=== PATIENT | male | born 1955 | race Caucasian/White ===

== ENCOUNTER 2019-04-28 19:33 | Emergency (ER) | payer MEDICAID ==
[~2019-04-28] VITALS: Ht 170.2 cm; Wt 68.0 kg
[2019-04-28] MEDS ORDERED: KETOROLAC TROMETH 15 mg/ml 1ML VL IV ONE (20:00)
[2019-04-28] MEDS ORDERED: HYDROcodone-ACET 7.5/325MG TAB PO ONE (20:00)
[2019-04-28 22:16] VITALS: BP 104/60
== END 2019-04-28 21:50 | disposition home or self-care (01) ==
LOC: EDBD 19:33 → ER 19:43
DX: S20.211A Contusion of right front wall of thorax, initial encounter (principal); E11.9 Type 2 diabetes mellitus without complications; I10 Essential (primary) hypertension; F17.210 Nicotine dependence, cigarettes, uncomplicated; F12.90 Cannabis use, unspecified, uncomplicated; Z88.6 Allergy status to analgesic agent; Z88.0 Allergy status to penicillin; Z95.0 Presence of cardiac pacemaker; W01.0XXA Fall on same level from slipping, tripping and stumbling without subsequent striking against object, initial encounter; Y93.89 Activity, other specified; Y99.8 Other external cause status; Y92.89 Other specified places as the place of occurrence of the external cause
CPT/HCPCS: 71250; 96374; 99284; J1885